=== PATIENT | female | born 1930 | race Caucasian/White ===

== ENCOUNTER 2017-04-17 20:35 | Emergency (ER) | payer MEDICARE, BC ==
--- NOTE | ~2017-04-17 | EKG ---
PATIENT: JORDYN TURNER UNIT #: [id number] Ventricular Rate: 66 BPM Atrial Rate: 66 BPM P-R Interval: 170 ms QRS Duration: 88 ms Q-T Interval: 422 ms QTC Calculation(Bezet): 442 ms P [place]: 52 degrees Calculated R [place]: -59 degrees Calculated T [place]: 77 degrees Diagnosis Line: Normal sinus rhythm Diagnosis Line: Left axis deviation Diagnosis Line: Left anterior fascicular block Diagnosis Line: Abnormal ECG Diagnosis Line: When compared with ECG of 15-OCT-2016 14:59, Diagnosis Line: QRS axis Shifted left Diagnosis Line: Diagnosis Line: Confirmed by ROSSY MONTES MD ([id number]) on Diagnosis Line: 04/19/2017 9:58:59 AM INTERPRETING : RADHA
[~2017-04-17 20:35] MED LIST: ACETAMINOPHEN PO; ALPRAZOLAM PO; AMLODIPINE BESYL5 MG PO; AVALIDE 300-12.1 TAB PO; BACTRIM DS TABL1 TAB PO; BENTYL10 MG PO; CALCIUM + VITAM1 TAB PO; CARVEDILOL3.125 MG PO; CHEWABLE ASPIRI81 MG PO; CLARITIN10 MG PO; DICYCLOMINE HCL20 MG PO; DIOVAN HCT 320/1 TA2 PO; DIOVAN PO; HYDROCODON-ACE1 EACH PO; KEFLEX PO; LIDODERM30 EA TOP; LIPITOR PO; LORTAB 5/500 TA1 TA2 PO; MACRODANTIN PO; MOTION SICKNESS25 M4 PO; MULTI-DAY1 TAB PO; MYRBETRIQ25 MG PO; NITROFURANTOIN50 M1 PO; NORVASC PO; NORVASC2.5 MG PO; OMEPRAZOLE20 M2 PO; OYSTER CALCIUM500 MG PO; PERCOCET 5-3251 TAB PO; PREDNISONE1 MG PO; PREDNISONE10 MG PO; PREVACID PO; PRILOSEC20 MG PO; RITE-AID PHARMACY; SKELAXIN PO; TYL325 PO; TYLENOL ARTHRITIS; TYLENOL PM; TYLENOL PM EX-S1 TA3 PO; VICODIN 5/500 T1 TAB PO; ZOLOFT PO; ZOLOFT50 MG PO
[2017-04-17 22:48] LABS: POC - CKMB <1.0 ng/mL (0.0-7.9); POC - TROPONIN <0.05 ng/mL (<=0.05)
[2017-04-17 23:01] LABS: BASOPHIL% 0.8 % (0-2.5); EOSINOPHIL# 0.3 X10e3 (0-0.7); EOSINOPHIL% 5.7 % (0.0-7.0); HEMATOCRIT 40.4 % (35.0-45.0); HEMOGLOBIN 13.3 gm/dL (12.0-16.0); LYMPHOCYTE# 1.7 X10e3 (1.0-3.5); LYMPHOCYTE% 30.9 % (17.0-45.0); MEAN CELL VOLUME 94.4 FL (83-96); MEAN CORPUSCULAR HEMOGLOBIN 31.1 PG (28-34); MEAN PLATELET VOLUME 11.1 FL (6.5-11.5); MONOCYTE# 0.5 X10e3 (0-1.0); MONOCYTE% 8.2 % (3.0-12.0); NEUTROPHIL% 54.4 % (40-75); PLATELET COUNT 109 X10e3 (140-420); RED BLOOD COUNT 4.28 X10e (3.90-5.30); RED CELL DISTRIBUTION WIDTH 13.7 % (11.0-15.5); WHITE BLOOD COUNT 5.6 X10e3 (4.0-10.5)
[2017-04-17 23:04] LABS: DIFF IND NO
[2017-04-17 23:27] LABS: BUN/CREATININE RATIO 26.66; CALCIUM SERUM 8.9 mg/dL (8.4-10.2); CREATININE SERUM 0.6 mg/dL (0.6-1.4); GLOM FILT RATE Estimated 83.1 mL/min (>60); POTASSIUM 3.8 mmol/L (3.5-5.1)
== END 2017-04-18 00:14 | disposition home or self-care (01) ==
LOC: CED 20:35
PROVIDERS: Emergency Medicine
DX: R42 Dizziness and giddiness (principal); I10 Essential (primary) hypertension; Z79.899 Other long term (current) drug therapy
CPT/HCPCS: 36415; 80048; 82553; 82947; 84484; 85025; 93005; 99284